=== PATIENT | male | born 1950 | race Caucasian/White ===

== ENCOUNTER 2024-10-12 21:49 | Inpatient (IN) | payer OTHER ==
[~2024-10-12] VITALS: Ht 172.7 cm; Wt 154.8 kg
--- NOTE | 2024-10-12 22:21 | ED.PDOC ---
History of Present Illness HPI Comments 74 y/o morbidly obese M, with a history of Aflutter, COPD, 5x mini strokes, [place] in 2013, and ulcerative colitis, presents with daughter for c/c shortness of breath w/exertion and nonproductive cough. Patient endorses on 6-7x day history of symptoms following gradual onset. He states on having associated inability to sleep and no relief with [id number] congestion and flu mediations along with his at-home albuterol inhaler and CPAP. Denies any chest pain, palpitations, dizziness, lightheadedness, fever, chills, or further associated symptoms. Chief Complaint: Shortness of Breath Time Seen by MD: 22:00 Reviewed Notes: Nurses Notes, Medications, Allergies Allergies: Coded Allergies: NO KNOWN ALLERGIES (Unverified , 10/12/24) Information Source: Patient Mode of Arrival: Wheelchair Severity: Moderate Timing: Hours Duration: Since onset Prehospital treatment: None Past Medical History PAST MEDICAL HISTORY: COPD, [place], Denies Past Medical History (Other): AFlutter Ulcerative colitus 5x minis strokes Surgical History (Other): blood transfusions Family History Family History: Unknown Social History Smoker: Non-Smoker Alcohol: Denies ETOH Use Drugs: Denies Drug Use Lives In: Home All Other Systems: Reviewed and Negative (Comprehensive review of systems are negative unless otherwise stated in HPI) Physical Exam General Appearance: No Apparent Distress, Obese HEENT: Normal ENT Inspection, Pharynx Normal, TMs Normal Neck: Full Range of Motion, Non-Tender, Normal, Normal Inspection Respiratory: Chest Non-Tender, Decreased Breath Sounds (at bases, bilaterally), Lungs Clear, No Accessory Muscle Use, No Respiratory Distress, Respiratory Distress (mild ) Cardiovascular: No Edema, No JVD, No Murmur, No Gallop, Normal Peripheral Pulses, Regular Rate/Rhythm Breast Exam: Deferred Gastrointestinal: No Organomegaly, Non Tender, No Pulsatile Mass, Normal Bowel Sounds, Soft Genitalia: Deferred Pelvic: Deferred Rectal: Deferred Extremities: No calf tenderness, Normal capillary refill, Normal inspection, Normal range of motion, Non-tender, No pedal edema Musculoskeletal : Apperance: Normal Neurologic: Alert, propellant assembler II-XII nml as Tested, No Motor Deficits, Normal Affect, Normal Mood, No Sensory Deficits Cerebellar Function: Normal Reflexes: Normal Skin: Dry, Normal Color, Warm Lymphatic: No Adenopathy Was a procedure done? Was a procedure done?: No Differential Dx Considerations may include: Acute COPD exacerbation, URI, PNA, [place], PE, viral syndrome, among others X-Ray, Labs, Meds, VS Vital Signs Date Time Temp Pulse Resp B/P (MAP) Pulse Ox O2 Delivery O2 Flow Rate FiO2 10/12/24 22:49 20 96 Room Air* 0 21 10/12/24 21:49 98.1 88 18 162/82 92 98.1 10/12/24 21:49 92 Room Air* 0 21 Lab Test 10/12/24 23:40 10/12/24 22:35 Range/Units Troponin I High Sensitivity < 3 L < 3 L </=54 ng/L White Blood Count 9.1 4.4-10.8 10^3/uL Red Blood Count 4.66 4.5-5.90 10^6/uL Hemoglobin 15.2 13.5-17.5 g/dL Hematocrit 45.6 41.0-53.0 % Mean Corpuscular Volume 97.8 80.0-100.0 fL Mean Corpuscular Hemoglobin 32.6 H 28.0-32.0 pg Mean Corpuscular Hemoglobin Concent 33.3 32.0-36.0 g/dL Red Cell Distribution Width 15.0 H 11.8-14.3 % Platelet Count 207 140-450 10^3/uL Mean Platelet Volume 7.9 6.9-10.8 fL Neutrophils (%) (Auto) 67.2 37.0-80.0 % Lymphocytes (%) (Auto) 18.7 10.0-50.0 % Monocytes (%) (Auto) 12.4 H 0.0-12.0 % Eosinophils (%) (Auto) 1.3 0.0-7.0 % Basophils (%) (Auto) 0.4 0.0-2.0 % Neutrophils # (Auto) 6.1 1.6-8.6 10 ^3/uL Lymphocytes # (Auto) 1.7 0.4-5.4 10 ^3/uL Monocytes # (Auto) 1.1 0-1.3 10 ^3/uL Eosinophils # (Auto) 0.1 0-0.8 10 ^3/uL Basophils # (Auto) 0 0-0.2 10 ^3/uL Nucleated Red Blood Cells 0.1 % Sodium Level 139 136-145 mmol/L Potassium Level 4.2 3.5-5.1 mmol/L Chloride Level 104 98-107 mmol/L Carbon Dioxide Level 28 20-31 mmol/L Anion Gap 7 5-15 Blood Urea Nitrogen 13 9-23 mg/dL Creatinine 1.03 0.700-1.30 mg/dL Glomerular Filtration Rate Calc 77 >90 mL/min BUN/Creatinine Ratio 12.6 10.0-20.0 Serum Glucose 129 H 74-106 mg/dL Lactic Acid Level 1.3 0.4-2.0 mmol/L Calcium Level 8.8 8.7-10.4 mg/dL Magnesium Level 2.0 1.6-2.6 mg/dL Total Bilirubin 0.4 0.2-1.0 mg/dL Aspartate Amino Transferase (AST) 19 13-40 U/L Alanine Aminotransferase (ALT) 18 7-40 U/L Alkaline Phosphatase 59 46-116 U/L B-Type Natriuretic Peptide 40.14 0-100 pg/mL Total Protein 7.0 5.7-8.2 g/dL Albumin 4.5 3.2-4.8 g/dL Current Medications Medications (Trade) Dose Ordered Sig/Rosalinda Route Start Time Stop Time Status Last Admin Albuterol (Ventolin Medneb) 5 mg ONCE ONCE NEB 10/12/24 22:15 10/12/24 22:16 DC 10/12/24 22:42 Time of 1ST Reevaluation: 22:30 Reevaluation 1ST: Unchanged Patient Education/Counseling: Diagnosis, Treatment Family Education/Counseling: Diagnosis, Treatment, No Family Present SEPSIS Sepsis Screen Date sepsis recognized/suspect: Oct 12, 2024 Time Sepsis recognized/suspect: 2148 Recent Procedure: Yes On Antibiotic Therapy: No Respiratory Rate >20: No Heart Rate >90: No Temp<36 C (96.8 F) or >38.3 C: No SBP <90 or MAP <65 mmHG: No New Acute Mental Status Change: No Is the patient on CPAP, BIPAP,: No Physician Orders Chest Portable (10/12/24 22:11) Oxygen (10/12/24 22:11) Venous Blood Gas (10/12/24 22:11) Blood Culture (10/12/24 22:15) Chest Xray 1 View (10/13/24 00:36) Acetaminophen Solution Oral (Tylenol Bella (10/13/24 01:00) Vital Signs Date Time Temp Pulse Resp B/P (MAP) Pulse Ox O2 Delivery O2 Flow Rate FiO2 10/12/24 22:49 20 96 Room Air* 0 21 10/12/24 21:49 98.1 88 18 162/82 92 98.1 10/12/24 21:49 92 Room Air* 0 21 Laboratory Tests Test 10/12/24 22:35 Lactic Acid Level 1.3 mmol/L (0.4-2.0) White Blood Count 9.1 10^3/uL (4.4-10.8) Medications Medications Dose Ordered Sig/Rosalinda Route Start Time Stop Time Status Last Admin Dose Admin Albuterol 5 mg ONCE ONCE NEB 10/12/24 22:15 10/12/24 22:16 DC 10/12/24 22:42 Departure 1 Departure Time of Disposition: 00:59 Impression: Primary Impression: Pneumonia Additional Impressions: Pneumonitis Shortness of breath at rest Pulmonary hypertension Diastolic heart failure Disposition: ADMITTED INPATIENT Condition: Guarded Discharged With: Self Comments 74-year-old male complaining of cough and fatigue and malaise and shortness of breath. Patient states that this has been gradually getting worse over the last 1 week. Patient states that he gets short of breath when he lays down at night. Patient reports a history of pneumonia with similar symptoms in the past. Chest x-ray shows left lower lobe subtle infiltrate. Patient was given IV Rocephin and azithromycin antibiotics. Plan will be to admit the patient for shortness of breath at rest and pneumonia requiring oxygen. I suspect likely pulmonary hypertension as well. Critical Care Note Critical Care Time?: No Stability Stability form required: No Heart Score Heart Score: Heart Score Response (Comments) Value History Moderate Suspicious 1 EKG N/A 0 Age >65 2 Risk Factors >3 or Hx ASHD 2 Troponin N/A 0 Total 5 I personally scribed for GIANFRANCO LO MD ([email or web address]) on 10/12/24 at 22:21. Electronically submitted by Robbie Alfonso ([email or web address]). I personally scribed for GIANFRANCO LO MD ([email or web address]) on 10/12/24 at 22:22. Electronically submitted by Robbie Alfonso ([email or web address]). GIANFRANCO LO MD Oct 12, 2024 22:21
[2024-10-12] MEDS: ALBUTEROL SULF 2.5 MG/0.5ML(0.5%) NEB SOLN NEB ONE (22:42)
[2024-10-12 22:53] LABS: Hematocrit 45.6 % (41.0-53.0); Hemoglobin 15.2 g/dL (13.5-17.5); Mean Corpuscular Hemoglobin 32.6 pg (28.0-32.0); Mean Corpuscular Volume 97.8 fL (80.0-100.0); Nucleated Red Blood Cells % 0.1 %
[2024-10-12 23:09] LABS: Alanine Aminotransferase 18 U/L (7-40); Alkaline Phosphatase 59 U/L (46-116); Calcium 8.8 mg/dL (8.7-10.4); Carbon Dioxide 28 mmol/L (20-31); Chloride 104 mmol/L (98-107); Magnesium 2.0 mg/dL (1.6-2.6); Potassium 4.2 mmol/L (3.5-5.1)
[2024-10-12 23:10] LABS: Albumin 4.5 g/dL (3.2-4.8); Anion Gap 7 (5-15); BUN/Creatinine Ratio 12.6 (10.0-20.0); Bilirubin, Total 0.4 mg/dL (0.2-1.0); Blood Urea Nitrogen 13 mg/dL (9-23); Sodium 139 mmol/L (136-145); Total Protein 7.0 g/dL (5.7-8.2)
[2024-10-12 23:16] LABS: Glucose 129 mg/dL (74-106)
[2024-10-13] VITALS (13 sets, daily range): BP systolic 115–145; BP diastolic 65–90; PULSE 63–98; RESP 16–20; TEMP 97.3–98.6; O2SAT 90–99
[2024-10-13] MEDS: ACETAMINOPHEN 650 mg PER 20.3 mL UD PO ONE (01:12)
[2024-10-13] MEDS: cefTRIAXone 1GM/50ML D5W 50 ML IV ONE (01:15)
[2024-10-13] MEDS ORDERED: ALBUTEROL SULF 2.5 MG/0.5ML(0.5%) NEB SOLN NEB SCH (02:15)
[2024-10-13] MEDS ORDERED: IPRATROPIUM BROM 0.5 MG/2.5ML INH SOL NEB SCH (02:15)
[2024-10-13] MEDS ORDERED: ACETAMINOPHEN 325 MG TAB PO PRN (02:15)
[2024-10-13] MEDS: AZITHROMYCIN 500MG/ 250ML 250 ML IV ONE (02:28)
[2024-10-13] MEDS: methylPREDNISolone SOD SUCC 40 MG/ML VL IV SCH (02:29)
--- NOTE | 2024-10-13 02:29 | DVHHPRES ---
History of Present Illness Resident Creating Document: APOLLO BANUELOS RESIDENT History of Present Illness This is a 74-year-old male with past medical history of atrial flutter currently on warfarin, COPD, history of strokes, [place] in 2013 without stent placement, ulcerative colitis. Patient presented to the ED with chief complaint of shortness of breaths. Patient states that symptoms started one week ago but worsened in the past two days. The patient reports shortness of breaths at rest and with the exertion associated with a nonproductive cough. The patient reports that in the last two days, he started having worsening shortness of breaths but no sputum production. Patient denies fever, chills, chest pain or any additional symptoms. Upon admission, patient was having shortness of breaths with nonproductive cough and wheezing on bilateral lung bases on auscultation. Initial labs, CBC and CMP were grossly unremarkable with negative troponins and normal BNP. Initial chest x-ray slightly poor penetrated but was showing mild opacities on right lung. We started the patient on IV azithromycin and ceftriaxone as well as methylprednisolone, albuterol and ipratropium med nebs for poss COPD exacerbation. Patient will be admitted for further assessment and management. Past medical history: Atrial flutter, COPD, history of strokes, [place], ulcerative colitis Home medications: Warfarin 5 mg daily, metformin 500 mg b.i.d., azathioprine 50 mg b.i.d., furosemide 40 mg p.o. q.d., carvedilol 6.25 b.i.d., finasteride 5 mg daily, montelukast 10 mg daily, simvastatin 20 mg daily Surgical history: Denies Social history: Denies alcohol intake, smoking or drug intake. Past Surgical History: None Family History: None Smoke: No ALCOHOL: none Drugs: None Lives: with Family Domestic Violence: Neg Review of Systems Constitutional: No: Fever, Chills, Sweats, Weakness, Malaise, Other Eyes: No: Pain, Vision change, Conjunctivae inflammation, Eyelid inflammation, Other, Redness ENT: No: Ear pain, Ear discharge, Nose pain, Nose discharge, Nose congestion, Mouth pain, Mouth swelling, Throat pain, Throat swelling, Other Respiratory: Cough, Dry, Shortness of breath, Wheezing; No: SOB with excertion, Hemoptysis, Pleuritic Pain, Sputum, Wheezing, Other Cardiovascular: No: Chest Pain, Palpitations, Orthopnea, Paroxysmal Noc. Dyspnea, Edema, Lt Headedness, Other Gastrointestinal: No: Nausea, Vomiting, Abdominal Pain, Diarrhea, Constipation, Melena, Hematochezia, Other Genitourinary: No Dysuria, No Frequency, No Incontinence, No Hematuria, No Retention, No Other Musculoskeletal: other (Mild 1+ bilateral lower extremity swelling); No: neck pain, shoulder pain, arm pain, back pain, hand pain, leg pain, foot pain Skin: No: Rash, Lesions, Jaundice, Bruising, Other Neurological: No: Weakness, Numbness, Incoordination, Change in speech, Confusion, Seizures, Other Allergies: Coded Allergies: NO KNOWN ALLERGIES (Unverified , 10/12/24) Medications Current Medications Medications Dose Ordered Sig/Rosalinda Route Start Time Stop Time Status Last Admin Dose Admin Acetaminophen 650 mg Q6HP PRN PO 10/13/24 02:15 Azithromycin 500 mg DAILY PO 10/14/24 10:00 Ceftriaxone Sodium 50 ml @ 100 mls/hr DAILY IV 10/14/24 10:00 Methylprednisolone Sodium Succinate 40 mg BID IV 10/13/24 02:15 Albuterol 2.5 mg Q6HR NEB 10/13/24 02:15 Ipratropium [place] 0.5 mg Q6HR NEB 10/13/24 02:15 Exam Vital Signs Vital Signs Date Time Temp Pulse Resp B/P (MAP) Pulse Ox O2 Delivery O2 Flow Rate FiO2 10/13/24 01:04 98.5 82 20 145/79 (101) 93 98.5 10/12/24 22:49 Room Air* 0 21 General Appearance: Alert, Oriented X3, Cooperative, mild distress HEENT: Atraumatic, PERRLA, EOMI, Mucous membr. moist/pink Respiratory: Clear to auscultation, Normal air movement, Other (There were bilateral lung base wheezing.) Cardiovascular: Regular rate, Normal S1, Normal S2, No murmurs Abdominal: Normal bowel sounds, Soft, No tenderness, No hepatospenomegaly, No masses Extremities: No clubbing, No cyanosis, Normal pulses, Other (There was mild bilateral lower extremity swelling) Skin: No rashes, No breakdown, No significant lesion Neuro: Normal gait, Normal speech, Strength at 5/5 X4 ext, Normal tone, Sensati on intact, Cranial nerves 3-12 NL, Reflexes 2+ Psych/Mental Status: Mental status NL, Mood NL Labs/Xrays Labs Test 10/12/24 23:40 10/12/24 22:35 Range/Units Troponin I High Sensitivity < 3 L </=54 ng/L White Blood Count 9.1 4.4-10.8 10^3/uL Red Blood Count 4.66 4.5-5.90 10^6/uL Hemoglobin 15.2 13.5-17.5 g/dL Hematocrit 45.6 41.0-53.0 % Mean Corpuscular Volume 97.8 80.0-100.0 fL Mean Corpuscular Hemoglobin 32.6 H 28.0-32.0 pg Mean Corpuscular Hemoglobin Concent 33.3 32.0-36.0 g/dL Red Cell Distribution Width 15.0 H 11.8-14.3 % Platelet Count 207 140-450 10^3/uL Mean Platelet Volume 7.9 6.9-10.8 fL Neutrophils (%) (Auto) 67.2 37.0-80.0 % Lymphocytes (%) (Auto) 18.7 10.0-50.0 % Monocytes (%) (Auto) 12.4 H 0.0-12.0 % Eosinophils (%) (Auto) 1.3 0.0-7.0 % Basophils (%) (Auto) 0.4 0.0-2.0 % Neutrophils # (Auto) 6.1 1.6-8.6 10 ^3/uL Lymphocytes # (Auto) 1.7 0.4-5.4 10 ^3/uL Monocytes # (Auto) 1.1 0-1.3 10 ^3/uL Eosinophils # (Auto) 0.1 0-0.8 10 ^3/uL Basophils # (Auto) 0 0-0.2 10 ^3/uL Nucleated Red Blood Cells 0.1 % Sodium Level 139 136-145 mmol/L Potassium Level 4.2 3.5-5.1 mmol/L Chloride Level 104 98-107 mmol/L Carbon Dioxide Level 28 20-31 mmol/L Anion Gap 7 5-15 Blood Urea Nitrogen 13 9-23 mg/dL Creatinine 1.03 0.700-1.30 mg/dL Glomerular Filtration Rate Calc 77 >90 mL/min BUN/Creatinine Ratio 12.6 10.0-20.0 Serum Glucose 129 H 74-106 mg/dL Lactic Acid Level 1.3 0.4-2.0 mmol/L Calcium Level 8.8 8.7-10.4 mg/dL Magnesium Level 2.0 1.6-2.6 mg/dL Total Bilirubin 0.4 0.2-1.0 mg/dL Aspartate Amino Transferase (AST) 19 13-40 U/L Alanine Aminotransferase (ALT) 18 7-40 U/L Alkaline Phosphatase 59 46-116 U/L B-Type Natriuretic Peptide 40.14 0-100 pg/mL Total Protein 7.0 5.7-8.2 g/dL Albumin 4.5 3.2-4.8 g/dL SEPSIS Sepsis Screen Date sepsis recognized/suspect: Oct 12, 2024 Time Sepsis recognized/suspect: 2148 Recent Procedure: Yes On Antibiotic Therapy: No Respiratory Rate >20: No Heart Rate >90: No Temp<36 C (96.8 F) or >38.3 C: No SBP <90 or MAP <65 mmHG: No New Acute Mental Status Change: No Is the patient on CPAP, BIPAP,: No Physician Orders Chest Portable (10/12/24 22:11) Oxygen (10/12/24 22:11) Venous Blood Gas (10/12/24 22:11) Blood Culture (10/12/24 22:15) Azithromycin 500mg/ 250ml (Zithromax 50 (10/13/24 01:15) Admit (10/13/24 02:03) Code Status (10/13/24 02:03) Vital Signs .PER UNIT PROTOCOL (10/13/24 02:03) Review Orders With Adm. (10/13/24 02:03) Encourage Activity As Tolerate (10/13/24 02:03) Acetaminophen Tablet (Tylenol Tablet) (10/13/24 02:15) Notify Md Of Changes From Base (10/13/24 02:03) Advance Directive (10/13/24 02:03) Basic Metabolic Panel (10/14/24 04:00) Complete Blood Count (10/14/24 04:00) Lipid Panel (10/13/24 02:03) Patient Condition (10/13/24 02:03) Allergies (10/13/24 02:03) Drug Screen (10/13/24 02:03) Hemoglobin A1c (10/13/24 02:03) Methylprednisolone Sod Succ (Solu Medrol (10/13/24 02:15) Albuterol Medneb (Ventolin Medneb) (10/13/24 02:15) Ipratropium Medneb (Atrovent Medneb) (10/13/24 02:15) Cardiac Diet-2gna,Lofat,Lochol (10/13/24 Breakfast) Strict I & O QSHIFT (10/13/24 02:13) PTPTT (10/13/24 02:14) Ceftriaxone 1gm/50ml D5w (Rocephin) (10/14/24 10:00) Azithromycin Tablet (Zithromax Tablet) (10/14/24 10:00) Albuterol Medneb (Ventolin Medneb) (10/13/24 06:00) Ipratropium Medneb (Atrovent Medneb) (10/13/24 06:00) Furosemide Injection (Lasix Injection) (10/13/24 10:00) Carvedilol Tablet (Coreg Tablet) (10/13/24 10:00) Warfarin Sodium (Coumadin) (10/13/24 10:00) Atorvastatin (Lipitor) (10/13/24 10:00) Vital Signs Date Time Temp Pulse Resp B/P (MAP) Pulse Ox O2 Delivery O2 Flow Rate FiO2 10/13/24 01:04 98.5 82 20 145/79 (101) 93 98.5 10/12/24 22:49 20 96 Room Air* 0 21 10/12/24 21:49 98.1 88 18 162/82 92 98.1 10/12/24 21:49 92 Room Air* 0 21 Laboratory Tests Test 10/12/24 22:35 Lactic Acid Level 1.3 mmol/L (0.4-2.0) White Blood Count 9.1 10^3/uL (4.4-10.8) Medications Medications Dose Ordered Sig/Rosalinda Route Start Time Stop Time Status Last Admin Dose Admin Acetaminophen 650 mg ONCE ONCE PO 10/13/24 01:00 10/13/24 01:01 DC 10/13/24 01:12 650 MG Albuterol 5 mg ONCE ONCE NEB 10/12/24 22:15 10/12/24 22:16 DC 10/12/24 22:42 5 MG Assessment/Plan Assessment/Plan Assessment/plan Acute hypoxic respiratory failure likely due to COPD exacerbation Possible Gram-positive/Gram-negative bacterial pneumonia Possible acute on chronic systolic/diastolic heart failure History of atrial flutter Plan -initial chest x-ray, poor penetration showed possible right-sided opacities -troponins were negative, BNP was normal range -start methylprednisolone 40 mg IV b.i.d. -start IV ceftriaxone and azithromycin daily -start albuterol and ipratropium med nebs q.6 scheduled -monitor saturation closely -strict in's and out -cardiac diet -furosemide 20 mg IV daily -resume warfarin, likely due to atrial flutter (patient does not know why he takes it) -ordered sputum cultures and Gram stain -screen for influenza and COVID-19 Goals of care discussed with the patient and daughter at bedside, full code Plan discussed with Dr. Navarro Plan discussed with: Patient My Orders Orders - APOLLO BANUELOS Procedure Category Date Status Time Admit ADMIT 10/13/24 Transmitted 02:03 Code Status CODE 10/13/24 Transmitted 02:03 Vital Signs SARA 10/13/24 In Process 02:03 Review Orders With SARA 10/13/24 In Process Adm. 02:03 Encourage Activity As SARA 10/13/24 In Process Tolerate 02:03 Acetaminophen Tablet PHA 10/13/24 In Process (Tylenol Tablet) 02:15 Notify Of Changes SARA 10/13/24 In Process From Base 02:03 Advance Directive SARA 10/13/24 In Process 02:03 Basic Metabolic Panel LAB 10/14/24 Verified 04:00 Complete Blood Count LAB 10/14/24 Verified 04:00 Lipid Panel LAB 10/13/24 Logged 02:03 Patient Condition ORDERS 10/13/24 Transmitted 02:03 Allergies SARA 10/13/24 In Process 02:03 Drug Screen LAB 10/13/24 Logged 02:03 Hemoglobin A1c LAB 10/13/24 Logged 02:03 Methylprednisolone PHA 10/13/24 In Process Sod Succ (Solu Medrol 02:15 Albuterol Medneb PHA 10/13/24 In Process (Ventolin Medneb) 02:15 Ipratropium Medneb PHA 10/13/24 In Process (Atrovent Medneb) 02:15 Cardiac DIET 10/13/24 Transmitted Diet-2gna,Lofat,Lochol Breakfast Strict I & O SARA 10/13/24 In Process 02:13 PTPTT LAB 10/13/24 Logged 02:14 Ceftriaxone 1gm/50ml PHA 10/14/24 In Process D5w (Rocephin) 10:00 Azithromycin Tablet PHA 10/14/24 In Process (Zithromax Tablet) 10:00 Albuterol Medneb PHA 10/13/24 Verified (Ventolin Medneb) 06:00 Ipratropium Medneb PHA 10/13/24 Verified (Atrovent Medneb) 06:00 Furosemide Injection PHA 10/13/24 Verified (Lasix Injection) 10:00 Carvedilol Tablet PHA 10/13/24 Verified (Coreg Tablet) 10:00 Warfarin Sodium PHA 10/13/24 Verified (Coumadin) 10:00 Atorvastatin (Lipitor) PHA 10/13/24 Verified 10:00 Date of Service: Oct 13, 2024 Billing Provider: APOLLO BANUELOS Common Visit Codes: 30932-NYDALED INP/OBS CARE (HIGH) Secondary Visit Codes: 01444-ECXSTTGB CARE PLAN 30 MINUTES APOLLO BANUELOS Oct 13, 2024 02:29
[2024-10-13 02:46] LABS: INR 1.33 (0.9-1.15); Partial Thromboplastin Time 33.5 SEC (24.5-34.5); Prothrombin Time 13.7 sec (9.3-11.8)
[2024-10-13 03:04] LABS: Triglycerides 109 mg/dL (< 150)
[2024-10-13 03:06] LABS: Cholesterol 113 mg/dL (< 200); HDL Cholesterol 29 mg/dL (40-59)
[2024-10-13 03:07] LABS: Opiate Scree,Urine Neg (NEGATIVE); Phencyclidine Screen, Urine Neg (NEGATIVE)
[2024-10-13 03:08] LABS: Amphetamine Screen, Urine Neg (NEGATIVE); Barbiturate Scree,Urine Neg (NEGATIVE); Benzodiazephine Screen, Urine Neg (NEGATIVE); Cannabinoid Screen, Urine Neg (NEGATIVE); Cocaine Screen, Urine Neg (NEGATIVE)
--- NOTE | 2024-10-13 03:13 | DVH ---
CHEST RADIOGRAPH Indication: SOB Technique: Single frontal view of the chest was obtained COMPARISON: None FINDINGS: Lines and Tubes: None Lungs: Mild diffuse increased prominence of the pulmonary vasculature. Left basilar scarring versus a telectasis. No evidence of focal consolidation. Pleura: No effusion. No pneumothorax. Cardiomediastinal contours: Unremarkable Bones: Unremarkable IMPRESSION: 1. No acute disease. Mild diffuse increased prominence of the pulmonary vasculature and left basilar scarring versus atelectasis.
[2024-10-13 05:02] LABS: COVID19 ANTIGEN SOFIA FIA NEGATIVE (NEGATIVE)
[2024-10-13] MEDS ORDERED: SIMV20TA20 PO (06:11)
[2024-10-13] MEDS ORDERED: METF500S3 PO (06:11)
[2024-10-13] MEDS ORDERED: WARF-66 PO (06:11)
[2024-10-13] MEDS ORDERED: MONT-8 PO (06:11)
[2024-10-13] MEDS ORDERED: CARV6.2551 PO (06:11)
[2024-10-13] MEDS ORDERED: AZEL0.054 OP (06:11)
[2024-10-13] MEDS ORDERED: PYRI50TA67 PO (06:11)
[2024-10-13] MEDS ORDERED: FINA5TAB4 PO (06:11)
[2024-10-13] MEDS ORDERED: FURO20TA3 PO (06:11)
[2024-10-13] MEDS ORDERED: AZAT50TA35 PO (06:11)
[2024-10-13] MEDS ORDERED: BALS750C6 PO (06:11)
[2024-10-13] MEDS: IPRATROPIUM BROM 0.5 MG/2.5ML INH SOL NEB SCH (06:22)
[2024-10-13] MEDS: ALBUTEROL SULF 2.5 MG/0.5ML(0.5%) NEB SOLN NEB SCH (06:22)
[2024-10-13] MEDS: FUROSEMIDE 20 MG/2 ML VIAL IV SCH (09:48)
[2024-10-13] MEDS: CARVEDILOL 3.125 MG TAB PO SCH (09:49)
[2024-10-13] MEDS: ATORVASTATIN 20 MG TAB PO SCH (09:50)
--- NOTE | 2024-10-13 10:14 | ECG ---
[facility] Test Date: 2024-10-12 Test Time: 22:28:10 Pat Name: MILAGRO CAMACHO Department: ED Room: 0222 Gender: M [employer] Defense Instructor: RUPERT : 1950 Requested By: GIANFRANCO LO Order Number: [id number] Reading MD: Leo Wen Measurements Intervals Steger Rate: 86 P: 65 GA: 136 QRS: 175 QRSD: 130 T: 54 QT: 389 QTc: 466 Interpretive Statements Sinus rhythm Ventricular premature complex RBBB and LPFB Electronically Signed On 10-13-2024 23:01:07 PDT by Leo Wen Please click the below link to view image of tracing.
--- NOTE | 2024-10-13 12:02 | DVHSR ---
APPROVED REPORT EXAM: Two-dimensional and M-mode echocardiogram with Doppler and color Doppler. Blood Pressure: 115/76 mmHg INDICATION CHF RISK FACTORS Obesity: Height: 5'8", Weight: 341 DIMENSIONS LVDd4.7 (3.8-5.7cm)LA (2D)4.5 (1.9-4.0cm)Aortic Root4.4 (2.0-3.7cm) LVDs2.9 (2.5-4.0cm)LA (MM) (1.9-4.0cm)Aortic Cusp Exc2.4 (1.5-2.0cm) EF (%) 60.0 (55-70%)Rt. Atrium4.9 (1.9-4.0cm)Asc. Aorta cm IVSd1.1 (0.7-1.1cm)RV (D) (1.8-2.4cm) PWd1.2 (0.7-1.1cm) Mitral Valve MitralMitral Stenosis E wave0.59m/sMV Mean GR.mmHg A wave1.23m/sMV Peak GR.mmHg E/A ratio0.52D MVAcm2 DECEL [id number] 1/2 Timems Aortic Valve Aortic ValveAortic Stenosis V11.44m/Briana Mean GR.4mmHg V21.54m/Briana Peak GR.9mmHg LVOT Diameter2.5 (1.8-2.4cm)Doppler AVA4.59cm2 Pulmonic Valve V21.09m/s Other Information Technically limited study due to body habitus. Conclusion lvef 65% mild LVH normal rv functin, RV enlarged normal atria no severe valve abnormalities noted
[2024-10-13 13:59] LABS: INR 1.3 (0.9-1.15); Partial Thromboplastin Time 31.3 SEC (24.5-34.5); Prothrombin Time 13.4 sec (9.3-11.8)
[2024-10-13 14:54] LABS: Urine Protein, UAD TRACE (Negative)
[2024-10-13] MEDS: SALINE 0.65 % NASAL SPRAY 45ML BOTTLE EACHNOSTRI ONE (15:12)
--- NOTE | 2024-10-13 17:03 | DVHPNRES ---
Progress Note Date Seen: Oct 13, 2024 Resident Creating Document: ZARI ZARCO RESIDENT Medical Necessity Reason Pt with a Central, PICC or Fol: No Subjective Review of Systems Patient is a 74-year-old male with prior medical history of COPD, atrial flutter on warfarin, ulcerative colitis, [place] in 2013 without stent placement, stroke, basal cell carcinoma, and obstructive sleep apnea, who presented to the ED with chief complaint of persistent cough and shortness of breath. The patient refers persistent cough for 7 days with progressive onset of shortness of breath with minor exertion. Denies fever, expectoration, chest pain, nausea, vomiting, recent exposure to sick contacts, and use of oxygen at home. He states that at baseline, he is able to climb the stairs of his home and walk across flat surfaces with mild difficulty, but for the last 4 days he states that climbing the stairs to use the restroom has been extremely difficult and he has had shortness of breath at rest. Additionally, he states he has had issues with persistent cough for about the last 4 weeks, he was seen by his PCP, Dr. Oliver, who sent one-week of oral antibiotic. He had relief from his cough for about a week before it started again. On evaluation in the ED, patient was hypertensive, in mild respiratory distress, and with decreased breath sounds bilaterally. Initial labs show CBC and chemical panel with normal range, PT 13.7, INR 1.33, troponins negative, and BNP 40.14. Chest x-ray shows no acute disease, mild diffuse increased prominence of the pulmonary vasculature and left basilar scarring versus atelectasis. He was placed on O2 and started on antibiotics, Solu Medrol, and breathing treatments and was admitted for further workup and monitoring. Personal history: COPD, atrial flutter on warfarin, ulcerative colitis with last exacerbation in 2012, [place] in 2013 without stent placement, stroke in 2013, basal cell carcinoma, and obstructive sleep apnea Allergies: Denies Surgical: Resection of basal cell carcinoma Social: Denies drug and tobacco use, states he used to drink 2-3 six packs a day on weekends for 12-15 years with cessation 35 years ago. 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 States moved to the area a few months ago to live his daughter, Ignacia, and her family. States he feels safe. Patient seen at bedside. He is AOx4, states that he feels better than yesterday and shortness of breath has improved. He states that his cough persists, stating that it has neither improved nor worsened. He denies fever, chest pain, expectoration, nausea, vomiting, abdominal pain, palpitations, and other symptoms. No adverse events over nights. The patient has been slightly hypertensive since arrival, currently saturating within acceptable range on 2L NC considering underlying COPD. Respiratory viral panel is negative. Due to the presence of pitting edema in bilateral lower extremities, we have ordered an Echocardiogram for evaluation of heart function which states that LVEF 65%, mild LVH, normal RV function, RV enlarged, normal atria. He states his daughter, Ignacia, will bring his BiPAP machine. We will continue with current management and will continue to monitor. Review of Systems: Constitutional: Denies weight loss, fever and chills. HEENT: Denies changes in vision and hearing. Respiratory: Refers shortness of breath and cough Cardiovascular: Denies chest discomfort or palpitations GI: Refers presence of umbilical hernia currently denies any symptoms associated with it, denies abdominal distention, abdominal pain, diarrhea : Denies dysuria and urinary frequency. Musculoskeletal: denies symptoms Skin: Denies rash and pruritus. Neurological: denies dizziness headache vision or hearing problems Objective vital signs Vital Sign Date Time Temp Pulse Resp B/P (MAP) Pulse Ox O2 Delivery O2 Flow Rate FiO2 10/13/24 16:49 97.3 84 18 140/75 (96) 94 97.3 10/13/24 11:53 Nasal Cannula 2.0 10/13/24 11:53 28 Total Intake and Output 10/12/24 10/12/24 10/13/24 15:00 23:00 07:00 Intake Total 750 ml Balance 750 ml medications Current Medications Medications Dose Ordered Sig/Rosalinda Route Start Time Stop Time Status Last Admin Dose Admin Acetaminophen 650 mg Q6HP PRN PO 10/13/24 02:15 Azithromycin 500 mg DAILY PO 10/14/24 10:00 Ceftriaxone Sodium 50 ml @ 100 mls/hr DAILY IV 10/14/24 10:00 Methylprednisolone Sodium Succinate 40 mg BID IV 10/13/24 02:15 10/13/24 02:29 40 MG Albuterol 2.5 mg Q6HR NEB 10/13/24 06:00 10/13/24 11:53 2.5 MG Ipratropium [place] 0.5 mg Q6HR NEB 10/13/24 06:00 10/13/24 11:53 0.5 MG Furosemide 20 mg DAILY IV 10/13/24 10:00 10/13/24 09:48 20 MG Carvedilol 6.25 mg BID PO 10/13/24 10:00 10/13/24 09:49 6.25 MG Warfarin Sodium -Hazardous Drug -DO NOT CRUSH OR ... PER PHARMACY PO 10/13/24 11:15 Atorvastatin Calcium 20 mg DAILY PO 10/13/24 10:00 10/13/24 09:50 20 MG Guaifenesin 200 mg Q6HP PRN PO 10/13/24 15:00 10/13/24 15:12 200 MG Examination General: Patient seems comfortable, several episodes of wet cough are witnessed, patient alert and oriented in person place and time. Patient following commands HEENT: Normocephalic, atraumatic, face is red from persistent coughing, normal reactive pupils, EOM intact, pink conjunctiva, pink moist mucous membrane Respiratory/pulmonary: Bilateral chest expansion, clear lungs bilaterally, vesicular murmurs present in almost all lung noe, mild wheezes in bilateral lower lung noe. Cardiovascular: normal RRR, normal S1 and S2 Abdomen: Obese, abdomen nondistended, presence of umbilical hernia with no associated redness pain or warmth to touch, normal bowel sounds, no pain to palpation in any of the abdominal quadrants, no palpable masses. Extremities: presence of bilateral stasis dermatitis, minor pitting edema seen in bilateral lower extremities, no deformities, pulses are palpable Skin: as above Neurological: Intact cranial nerves with no focal neurologic deficits laboratory and microbiology Laboratory Tests 10/12/24 22:35 Test 10/12/24 22:35 Range/Units Serum Glucose 129 H 74-106 mg/dL Problem List/Assessment/Plan Problem List/Assessment/Plan Assessment and Plan: Acute COPD exacerbation, spirometry unavailable - Ceftriaxone 1 g IV daily - Azithromycin 500 mg p.o. daily - Solu-Medrol 40 mg IV b.i.d. - Ipratropium 0.5 mg Neb q.6 hours - Albuterol 2.5 mg neb q.6 hours Acute hypoxic respiratory failure, due to above - 2 L O2 via NC Possible community-acquired pneumonia, Gram-positive/Gram-negative - Ceftriaxone 1 g IV daily - Azithromycin 500 mg p.o. daily Chronic heart failure, ruled out -Echocardiogram: LVEF of 65%, mild LVH, normal RV function, RV enlarged, normal atria, no severe valve abnormalities noted History of atrial flutter - Warfarin per pharmacy protocol - INR: 1.33 Ulcerative colitis -Last exacerbation in 2012 Hypertension -Carvedilol 6.25 mg p.o. b.i.d. History of myocardial infarction without stent placement in 2012 History of stroke in 2012 Basal cell carcinoma -s/p Resection of lesions from upper lip and right cheek DARLINE - BiPAP at night Prediabetes, HbA1c: 6.4% Morbid obesity, BMI 51.9 kg/m2 History of heavy alcohol use DVT prophylaxis: Not indicated, patient is anticoagulated GI prophylaxis: Not indicated Case discussed with Dr. Nazario Goals of care discussed with the patient for 25 minutes. FULL CODE. Plan discussed with: Patient My Orders My Orders Orders - ZARI ZARCO Procedure Category Date Status Time Guaifenesin Plain PHA 10/13/24 In Process Liquid (Robitussin Vinnie 15:00 Date of Service: Oct 13, 2024 Billing Provider: ADRIEL NAZARIO MD Common Visit Codes: 03068-[id number] INP/OBS CARE(HIGH) Secondary Visit Codes: [id number] CARE PLAN 30 MINUTES ZARI ZARCO Oct 13, 2024 17:03 ADRIEL NAZARIO MD Oct 14, 2024 19:13
[2024-10-13] MEDS: WARFARIN SODIUM 5 MG TAB PO ONE (17:47)
[2024-10-14] VITALS (10 sets, daily range): BP systolic 117–133; BP diastolic 69–86; PULSE 73–93; RESP 18–24; TEMP 36.3; O2SAT 91–98
[2024-10-14 06:28] LABS: Hematocrit 44.3 % (41.0-53.0); Hemoglobin 14.9 g/dL (13.5-17.5); Mean Corpuscular Hemoglobin 32.7 pg (28.0-32.0); Mean Corpuscular Volume 97.5 fL (80.0-100.0); Nucleated Red Blood Cells % 0.1 %
[2024-10-14 06:30] LABS: Chloride 106 mmol/L (98-107); Potassium 4.8 mmol/L (3.5-5.1); Sodium 138 mmol/L (136-145)
[2024-10-14 06:31] LABS: Anion Gap 8 (5-15); Carbon Dioxide 24 mmol/L (20-31)
[2024-10-14 06:32] LABS: Calcium 9.3 mg/dL (8.7-10.4)
[2024-10-14 06:35] LABS: INR 1.25 (0.9-1.15); Partial Thromboplastin Time 31.4 SEC (24.5-34.5); Prothrombin Time 13.0 sec (9.3-11.8)
[2024-10-14 06:37] LABS: BUN/Creatinine Ratio 16.0 (10.0-20.0); Blood Urea Nitrogen 16 mg/dL (9-23)
[2024-10-14 06:39] LABS: Glucose 169 mg/dL (74-106)
[2024-10-14] MEDS: cefTRIAXone 1GM/50ML D5W 50 ML IV SCH (09:11)
[2024-10-14] MEDS: AZITHROMYCIN 250 MG TAB PO SCH (09:12)
[2024-10-14] MEDS ORDERED: AZIT-43 PO (12:23)
[2024-10-14] MEDS ORDERED: PRED20TA2 PO (12:23)
[2024-10-14] MEDS ORDERED: DOXY-346 PO (14:17)
--- NOTE | 2024-10-14 15:23 | DVHDSRES ---
Discharge Summary Date of Admission Resident Creating Document: ZARI ZARCO RESIDENT Oct 13, 2024 at 02:03 Date of Discharge: Oct 14, 2024 Admitting Diagnosis Shortness of breath Labs/Diagnostic Data: Laboratory Results Test 10/14/24 05:50 10/13/24 14:25 10/13/24 04:17 10/13/24 01:16 White Blood Count 8.4 10^3/uL (4.4-10.8) Red Blood Count 4.55 10^6/uL (4.5-5.90) Hemoglobin 14.9 g/dL (13.5-17.5) Hematocrit 44.3 % (41.0-53.0) Mean Corpuscular Volume 97.5 fL (80.0-100.0) Mean Corpuscular Hemoglobin 32.7 pg (28.0-32.0) Mean Corpuscular Hemoglobin Concent 33.6 g/dL (32.0-36.0) Red Cell Distribution Width 15.0 % (11.8-14.3) Platelet Count 246 10^3/uL (140-450) Mean Platelet Volume 7.9 fL (6.9-10.8) Neutrophils (%) (Auto) 83.2 % (37.0-80.0) Lymphocytes (%) (Auto) 10.3 % (10.0-50.0) Monocytes (%) (Auto) 6.2 % (0.0-12.0) Eosinophils (%) (Auto) 0.0 % (0.0-7.0) Basophils (%) (Auto) 0.3 % (0.0-2.0) Neutrophils # (Auto) 7.0 10 ^3/uL (1.6-8.6) Lymphocytes # (Auto) 0.9 10 ^3/uL (0.4-5.4) Monocytes # (Auto) 0.5 10 ^3/uL (0-1.3) Eosinophils # (Auto) 0 10 ^3/uL (0-0.8) Basophils # (Auto) 0 10 ^3/uL (0-0.2) Nucleated Red Blood Cells 0.1 % Prothrombin Time 13.0 sec (9.3-11.8) Prothrombin Time INR 1.25 (0.9-1.15) Activated Partial Thromboplast Time 31.4 SEC (24.5-34.5) Sodium Level 138 mmol/L (136-145) Potassium Level 4.8 mmol/L (3.5-5.1) Chloride Level 106 mmol/L (98-107) Carbon Dioxide Level 24 mmol/L (20-31) Anion Gap 8 (5-15) Blood Urea Nitrogen 16 mg/dL (9-23) Creatinine 1.00 mg/dL (0.700-1.30) Glomerular Filtration Rate Calc 80 mL/min (>90) BUN/Creatinine Ratio 16.0 (10.0-20.0) Serum Glucose 169 mg/dL (74-106) Calcium Level 9.3 mg/dL (8.7-10.4) Urine Color Light-yellow (Yellow) Urine Clarity Clear (Clear) Urine pH 5.5 (5.0-9.0) Urine Specific [place] 1.016 (1.001-1.035) Urine Protein Trace (Negative) Urine Ketones Negative (Negative) Urine Blood Trace /uL (Negative) Urine Nitrite Negative (Negative) Urine Bilirubin Negative (Negative) Urine Urobilinogen Normal mg/dL (Negative) Urine Leukocyte Esterase Negative /uL (Negative) Urine RBC 1 /hpf (0 - 3) Urine Microscopic WBC < 1 /HPF (0-3) Urine Squamous Epithelial Cells Few /hpf (<5) Urine Bacteria None seen /hpf (None Seen) Urine Hyaline Casts Few /lpf (0 - 2) Urine Mucus Few (None Seen) Urine Glucose Normal mg/dL (Normal) Influenza Type A Antigen Negative (Negative) Influenza Type B Antigen Negative (Negative) SARS-CoV-2 Antigen (Rapid) Negative (NEGATIVE) Urine Opiates Screen Neg (NEGATIVE) Urine Fentanyl Screen Neg (NEGATIVE) Urine Barbiturates Screen Neg (NEGATIVE) Urine Phencyclidine Screen Neg (NEGATIVE) Urine Amphetamines Screen Neg (NEGATIVE) Urine Benzodiazepines Screen Neg (NEGATIVE) Urine Cocaine Screen Neg (NEGATIVE) Urine Cannabinoids Screen Neg (NEGATIVE) Test 10/12/24 23:40 10/12/24 22:35 Troponin I High Sensitivity < 3 ng/L (</=54) Triglycerides Level 109 mg/dL (< 150) Cholesterol Level 113 mg/dL (< 200) LDL Cholesterol 73 mg/dL (< 100) HDL Cholesterol 29 mg/dL (40-59) Hemoglobin A1c 6.4 % A1C (<5.7) Lactic Acid Level 1.3 mmol/L (0.4-2.0) Magnesium Level 2.0 mg/dL (1.6-2.6) Total Bilirubin 0.4 mg/dL (0.2-1.0) Aspartate Amino Transferase (AST) 19 U/L (13-40) Alanine Aminotransferase (ALT) 18 U/L (7-40) Alkaline Phosphatase 59 U/L (46-116) B-Type Natriuretic Peptide 40.14 pg/mL (0-100) Total Protein 7.0 g/dL (5.7-8.2) Albumin 4.5 g/dL (3.2-4.8) Other Laboratory Tests 10/14/24 05:50 Brief Hx & Hospital Course: Patient is a 74-year-old male with prior medical history of COPD, atrial flutter on warfarin, ulcerative colitis, [place] in 2012 without stent placement, stroke, basal cell carcinoma, and obstructive sleep apnea, who presented to the ED with chief complaint of persistent cough and shortness of breath. The patient refers persistent cough for 7 days with progressive onset of shortness of breath with minor exertion. Denies fever, expectoration, chest pain, nausea, vomiting, recent exposure to sick contacts, and use of oxygen at home. He states that at baseline, he is able to climb the stairs of his home and walk across flat surfaces with mild difficulty, but for the last 4 days he states that climbing the stairs to use the restroom has been extremely difficult and he has had shortness of breath at rest. Additionally, he states he has had issues with persistent cough for about the last 4 weeks, he was seen by his PCP, Dr. Oliver, who sent one-week of oral antibiotic. He had relief from his cough for about a week before it started again. On evaluation in the ED, patient was hypertensive, in mild respiratory distress, and with decreased breath sounds bilaterally. Initial labs show CBC and chemical panel with normal range, PT 13.7, INR 1.33, troponins negative, and BNP 40.14. Chest x-ray shows no acute disease, mild diffuse increased prominence of the pulmonary vasculature and left basilar scarring versus atelectasis. He was placed on O2 and started on antibiotics, Solu Medrol, and breathing treatments and was admitted for further workup and monitoring. on evaluation after admission, the patient stated that he felt well, was tolerating properly on 2 L oxygen via nasal cannula. Respiratory panel was negative. Due to presence of pitting edema bilateral lower extremities, an echocardiogram was ordered for evaluation of heart function was stated that LVEF was 65%, mild LVH, normal RV function, RV enlarged, and normal atria. The patient was provided his BiPAP machine by his daughter john, which he used overnight. The patient has progressed favorably. On evaluation today, the patient stated that he felt well, shortness of breath had resolved, the cough persists however slightly improved, he denied chest pain, palpitations, fever, nausea, vomiting, and shortness of breath. He has slept well, tolerating oral diet, and is ambulating around his room with no difficulty. Vitals have been stable. Follow up labs are within normal range. Preliminary blood cultures are negative at 24 hours of growth. He is considered stable for discharge home with p.o. prednisone and p.o. doxycycline. We have been recommendations of lifestyle modifications for optimization of comorbidities. He is recommended to follow up with his PCP Dr. Sam 1-2 weeks. All recommendations and medications have been thoroughly explained to the patient. He states he understands and agrees. Personal history: COPD, atrial flutter on warfarin, ulcerative colitis with last exacerbation in 2012, [place] in 2013 without stent placement, stroke in 2013, basal cell carcinoma, and obstructive sleep apnea Allergies: Denies Surgical: Resection of basal cell carcinoma Social: Denies drug and tobacco use, states he used to drink 2-3 six packs a day on weekends for 12-15 years with cessation 35 years ago. 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 States moved to the area a few months ago to live his daughter, John, and her family. States he feels safe. Physical Exam: General: Patient seems comfortable, several episodes of wet cough are witnessed, patient alert and oriented in person place and time. Patient following commands HEENT: Normocephalic, atraumatic, face is red from persistent coughing, normal reactive pupils, EOM intact, pink conjunctiva, pink moist mucous membrane Respiratory/pulmonary: Bilateral chest expansion, clear lungs bilaterally, vesicular murmurs present in almost all lung noe, no crackles or wheezing. Cardiovascular: normal RRR, normal S1 and S2 Abdomen: Obese, abdomen nondistended, presence of umbilical hernia with no associated redness pain or warmth to touch, normal bowel sounds, no pain to palpation in any of the abdominal quadrants, no palpable masses. Extremities: presence of bilateral stasis dermatitis, no pitting edema seen in bilateral lower extremities, no deformities, pulses are palpable Skin: as above Neurological: Intact cranial nerves with no focal neurologic deficits Case discussed with Dr. Nazario Goals of care discussed with the patient for 30 minutes. He states he understands and agrees. Operations or Procedures CHEST RADIOGRAPH Indication: SOB Technique: Single frontal view of the chest was obtained COMPARISON: None FINDINGS: Lines and Tubes: None Lungs: Mild diffuse increased prominence of the pulmonary vasculature. Left basilar scarring versus atelectasis. No evidence of focal consolidation. Pleura: No effusion. No pneumothorax. Cardiomediastinal contours: Unremarkable Bones: Unremarkable IMPRESSION: 1. No acute disease. Mild diffuse increased prominence of the pulmonary vasculature and left basilar scarring versus atelectasis. Condition at Discharge: Stable Final Diagnosis/Problems List Acute COPD exacerbation, spirometry unavailable Acute hypoxic respiratory failure, due to above Possible community-acquired pneumonia, Gram-positive/Gram-negative Chronic heart failure, ruled out History of atrial flutter Ulcerative colitis Hypertension History of myocardial infarction without stent placement in 2013 History of stroke in 2013 Basal cell carcinoma -s/p Resection of lesions from upper lip and right cheek DARLINE Prediabetes, HbA1c: 6.4% Morbid obesity, BMI 51.9 kg/m2 History of heavy alcohol use Discharge Disposition: Home Discharge Instruct/Medications Diet: Consistent carbohydrate Activity: No Restrictions, As Tolerated Follow Up/Referral: Follow up with PCP in 1 week Medications: Prednisone PO 40 mg daily 5 days Doxycycline 100 mg p.o. b.i.d. 4 days Azathioprine 50 mg p.o. Azelastine Balsalazide 750 mg po Carvedilol 1 tab p.o. b.i.d. Finasteride 1 tablet p.o. daily Furosemide 1 tablet p.o. daily Metformin 500 mg p.o. Montelukast 1 tab p.o. daily Pyridoxine 50 mg p.o. Simvastatin 1 tablet p.o. q.p.m. Warfarin 1 tablet p.o. daily Scheduled Carvedilol (Carvedilol), 1 TAB PO BID, (Reported) Doxycycline (Monohydrate) (Doxycycline), 100 MG PO BID Finasteride (Finasteride), 1 TAB PO DAILY, (Reported) Furosemide (Furosemide), 1 TAB PO DAILY, (Reported) Montelukast Sodium (Montelukast Sodium), 1 TAB PO DAILY, (Reported) Prednisone (Prednisone), 40 MG PO DAILY Simvastatin (Simvastatin), 1 TAB PO QPM, (Reported) Warfarin Sodium (Warfarin Sodium), 1 TAB PO DAILY, (Reported) Miscellaneous Medications Azathioprine (Imuran), 50 MG PO, (Reported) Azelastine Hcl (Ophth) (Azelastine Hcl), 0.05 % OP, (Reported) Balsalazide Disodium (Balsalazide Disodium), 750 MG PO, (Reported) Metformin HCl (Metformin Hydrochloride), 500 MG PO, (Reported) Pyridoxine Hcl (Vitamin B-6), 50 MG PO, (Reported) Discharge Statement: "Patient was advised to return to the ER or call 911 if any headaches, dizziness, shortness of breath, chest pain, abdominal pain, bleeding, fevers, or worsening of medical condition. Patient was counseled about treatment plan, medications, possible side effects, patientverbalized understanding. All questions were answered to the best of my ability. This discharge took greater then 30 minutes in planning, reviewing documentation, counseling the patient, and discussing with other team members." ASSESSMENT ASSESSMENT Assessment COPD exacerbation Date of Service: Oct 14, 2024 Billing Provider: ADRIEL NAZARIO MD Common Visit Codes: 08084-UPP/OBS DISCH DAY >30min ZARI ZARCO RESIDENT Oct 14, 2024 15:23 ADRIEL NAZARIO MD Oct 14, 2024 19:13
[2024-10-14] MEDS ORDERED: WARFARIN SODIUM 2.5 MG TAB PO ONE (17:00)
== END 2024-10-14 15:41 | disposition home or self-care (01) | DRG 177 ==
LOC: ER 21:49 → OVERFLOW 10-13 02:03 → CENTRAL 10-13 05:25
PROVIDERS: ADMIT Internal Medicine Geriatric Medicine; ATTEND Internal Medicine Geriatric Medicine
DX: J15.69 Pneumonia due to other Gram-negative bacteria (principal); J96.01 Acute respiratory failure with hypoxia; J44.0 Chronic obstructive pulmonary disease with (acute) lower respiratory infection; I48.92 Unspecified atrial flutter; J44.1 Chronic obstructive pulmonary disease with (acute) exacerbation; Z68.43 Body mass index [BMI] 50.0-59.9, adult; J15.9 Unspecified bacterial pneumonia; G47.33 Obstructive sleep apnea (adult) (pediatric); J98.4 Other disorders of lung; I27.20 Pulmonary hypertension, unspecified; E66.01 Morbid (severe) obesity due to excess calories; G47.00 Insomnia, unspecified; I25.2 Old myocardial infarction; Z86.73 Personal history of transient ischemic attack (TIA), and cerebral infarction without residual deficits; Z85.828 Personal history of other malignant neoplasm of skin
CPT/HCPCS: 36415; 36600; 80048; 80053; 80061; 80307; 81001; 82805; 83036; 83605; 83735; 83880; 84484; 85025; 85610; 85730; 87040; 87070; 87077; 87205; 87426; 87804; 93005; 93306; 94640; G0378